=== PATIENT | female | born 1935 | race African-American/Black ===

== ENCOUNTER 2023-02-08 12:46 | Outpatient (CLI) | payer MEDICARE, SELFPAY ==
--- NOTE | 2023-02-08 14:30 | NEURO_ITS ---
Impression: # Non-diabetic complains of numbness in hands and feet. 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 # Needle/EMG exam mildly neurogenic. # Clinical correlation recommended. Nerve Conduction Studies Anti Sensory Summary Table Stim Site NR Peak (ms) P-T Amp (?V) Site1 Site2 Delta-P (ms) Dist (cm) Connor (m/s) Left Median Anti Sensory (2-3nd Digit) Wrist 3.6 20.4 Wrist 2-3nd Digit 3.6 14.0 39 Wrist 4.0 5.1 Wrist 2-3nd Digit 3.6 14.0 39 Right Median Anti Sensory (2-3nd Digit) Wrist 3.8 55.9 Wrist 2-3nd Digit 3.8 14.0 37 Wrist 3.7 76.6 Wrist 2-3nd Digit 3.8 14.0 37 Left Radial Anti Sensory (Base 1st Digit) Wrist 1.9 39.2 Wrist Base 1st Digit 1.9 0.0 Right Radial Anti Sensory (Base 1st Digit) Wrist 2.6 22.4 Wrist Base 1st Digit 2.6 0.0 Left Sup Fibular Anti Sensory (Ant Lat Mall) NO RESPONSE 14 cm NR 14 cm Ant Lat Mall 16.0 Right Sup Fibular Anti Sensory (Ant Lat Mall) NO RESPONSE 14 cm NR 14 cm Ant Lat Mall 16.0 Left Sural Anti Sensory (Lat Mall) NO RESPONSE Calf NR Calf Lat Mall 16.0 Right Sural Anti Sensory (Lat Mall) NO RESPONSE Calf NR Calf Lat Mall 16.0 Left Ulnar Anti Sensory (5th Digit) Wrist 3.2 30.4 Wrist 5th Digit 3.2 14.0 44 Right Ulnar Anti Sensory (5th Digit) Wrist 3.2 26.2 Wrist 5th Digit 3.2 14.0 44 Motor Summary Table Stim Site NR Onset (ms) O-P Amp (mV) Site1 Site2 Delta-0 (ms) Dist (cm) Connor (m/s) Left Median Motor (Abd Poll Brev) Wrist 4.0 1.3 Elbow Wrist 6.0 32.0 53 Elbow 10.0 1.0 Right Median Motor (Abd Poll Brev) Wrist 4.0 7.6 Elbow Wrist 5.3 30.0 57 Elbow 9.3 6.2 Left Peroneal Motor (Vastus Med) Ankle 5.1 3.0 Popit Ankle 10.1 44.0 44 Popit 15.2 2.9 Right Peroneal Motor (Vastus Med) Ankle 5.2 4.9 Popit Ankle 9.3 37.0 40 Popit 14.5 4.1 Left Tibial Motor (Abd Shay Brev) Ankle 5.2 1.5 Knee Ankle 10.0 43.0 43 Knee 15.2 1.9 Right Tibial Motor (Abd Shay Brev) Ankle 5.7 3.9 Knee Ankle 10.6 43.0 41 Knee 16.3 3.4 Left Ulnar Motor (Abd Dig Minimi) Wrist 3.0 6.5 A Elbow Wrist 5.4 30.0 56 A Elbow 8.4 5.3 Right Ulnar Motor (Abd Dig Minimi) Wrist 3.3 6.3 A Elbow Wrist 5.5 31.0 56 A Elbow 8.8 3.1 F Wave Studies NR F-Lat (ms) L-R F-Lat (ms) Left Median (Mrkrs) (Abd Poll Brev) 31.75 1.74 Right Median (Mrkrs) (Abd Poll Brev) 30.01 1.74 Left Peroneal (Mrkrs) (EDB) 56.41 0.58 Right Peroneal (Mrkrs) (EDB) 55.83 0.58 Left Tibial (Mrkrs) (Abd Hallucis) 57.74 0.35 Right Tibial (Mrkrs) (Abd Hallucis) 58.09 0.35 Left Ulnar (Mrkrs) (Abd Dig Min) 30.53 0.00 Right Ulnar (Mrkrs) (Abd Dig Min) 30.53 0.00 EMG Side Muscle Nerve Root Ins Act Fibs Amp Dur Recrt Comment Right 1stDorInt Ulnar C8-T1 Nml Nml Nml Nml Nml Right Ext Indicis Radial (Post Int) C7-8 Nml Nml Nml Nml Nml Right Ext Digitorum Radial (Post Int) C7-8 Nml Nml Nml Nml Nml Right BrachioRad Radial C5-6 Nml Nml Nml Nml Nml Right PronatorTeres Median C6-7 Nml Nml Nml Nml Nml Right Abd Poll Brev Median C8-T1 Nml Nml
== END 2023-02-08 12:47 | disposition home or self-care (01) ==
PROVIDERS: PCP Family Medicine; Visit Provider Student in an Organized Health Care Education/Training Program
DX: R20.2 Paresthesia of skin (principal); G62.9 Polyneuropathy, unspecified
CPT/HCPCS: 95886; 95913